=== PATIENT | male | born 1985 | race Hispanic/Latino ===

== ENCOUNTER 2024-10-15 18:47 | Emergency (ER) | payer OTHER ==
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
--- NOTE | 2024-10-15 19:55 | RAD REPORT ---
Procedure: Chest Single View HISTORY: Chest pain COMPARISON: none FINDINGS: The lungs appear clear of acute infiltrate. No significant pleural effusion noted. The heart is normal size. IMPRESSION: No acute abnormality is displayed.
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
[2024-10-15 23:16] VITALS: BP 124/81; TEMP 98.2; O2SAT 100
== END 2024-10-15 20:21 | disposition home or self-care (01) ==
LOC: ER 18:47
DX: S30.0XXA Contusion of lower back and pelvis, initial encounter (principal); R07.81 Pleurodynia; S09.90XA Unspecified injury of head, initial encounter; R51.9 Headache, unspecified
CPT/HCPCS: 70450; 71045; 71250; 72125; 74176; 99284